=== PATIENT | male | born 1970 | race Caucasian/White ===

== ENCOUNTER 2016-06-12 02:24 | Inpatient (IN) | payer OTHER ==
[~2016-06-12] VITALS: Ht 180.3 cm; Wt 92.2 kg
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
[~2016-06-12 02:24] MED LIST: LEVAQUIN 500 M500 M1 PO; NAPROSYN500 MG PO; NORCO 5-325 TA1 EACH PO
[2016-06-12 02:25] VITALS: BP 121/84
[2016-06-12 03:06] LABS: ABSOLUTE NEUTROPHILS 8.5 thou/uL (1.4-8.2); BASOPHILS 0.4 % (0.0-2.0); EOSINOPHILS 2.2 % (0.0-3.0); HEMATOCRIT 34.1 % (42.0-52.0); HEMOGLOBIN 11.5 gm/dL (14.0-18.0); LYMPHOCYTES 17.9 % (24.0-44.0); MCH 29.4 pg (26.0-34.0); MCHC 33.8 % (28.0-37.0); MCV 86.9 fL (80.0-100.0); MONOCYTES 8.7 % (1.0-8.0); PLATELET COUNT 335 thou/uL (150-400); POLYS 70.8 % (36.0-66.0); RBC 3.93 mil/uL (4.50-6.00); RDW 14.2 % (10.5-14.5); WBC 12.1 thou/uL (4.0-11.0)
[2016-06-12 03:10] LABS: ABG COMMENT ROOM AIR; ABG SAMPLE TYPE ARTERIAL; BE(vivo) 0.9 mmol/L (-2 to +3); HCO3 25.3 mmol/L (22.0-26.0); LACTATE 0.91 mmol/L (0.5-2.0); O2Hb 92.5 % (92.0-98.0); PCO2 39.3 mmHg (35.0-45.0); PO2 65.9 mmHg (80.0-100.0); STICK SITE R.RADIAL; pH 7.426 (7.360-7.450); sO2 93.5 % (92.0-98.0); tCO2 26.5 mmol/L (24.0-30.0)
[2016-06-12 03:11] LABS: CALCIUM 8.5 mg/dL (8.5-10.1); CREATININE 1.2 mg/dL (0.6-1.3); POTASSIUM 4.3 mmol/L (3.5-5.1)
[2016-06-12 03:13] LABS: MANUAL DIFF NO
[2016-06-12 03:14] VITALS: BP 124/84
[2016-06-13 10:11] LABS: HEPATITIS C VIRUS AB 0.1 (0.0-0.9); HIV ANTIBODY Non Reactive (Non Reactive)
== END 2016-06-12 17:00 | disposition home or self-care (01) | DRG 195 ==
LOC: ER 02:24 → 3N 03:03 → EROBS 03:03 → 3N 03:20
PROVIDERS: Emergency Medicine; Specialist
DX: J18.9 Pneumonia, unspecified organism (principal); F15.90 Other stimulant use, unspecified, uncomplicated; N45.3 Epididymo-orchitis; R07.81 Pleurodynia; Z88.0 Allergy status to penicillin; Z90.5 Acquired absence of kidney; Z90.49 Acquired absence of other specified parts of digestive tract; Z59.0 Homelessness; Z98.890 Other specified postprocedural states; Z87.828 Personal history of other (healed) physical injury and trauma
CPT/HCPCS: 10096